=== PATIENT | female | born 1990 | race American Indian/Alaskan Native ===

== ENCOUNTER 2017-01-22 09:45 | Emergency (ER) | payer BC ==
[2017-01-22 09:47] VITALS: BMI 49.4
[2017-01-22 09:50] VITALS: PULSE 57; TEMP 98.2
--- NOTE | 2017-01-22 10:14 | ED PDOC ---
Arrival/HPI - General Historian: Patient - General Chief Complaint: Chest Pain Time Seen by Provider: 01/22/17 09:52 - History of Present Illness Narrative History of Present Illness (Text): 01/22/17 10:14 26 yo female w/Past medical history of morbid obesity, intermittent chest pain , was sent to Emergency department for evaluation of Left sided chest pain gradually developed since 3AM today. Pt sts, " yesterday went for 1st part of stress test when performed on treadmill and came back today for nuclear test". Pt sts, reported to visitor services technician today that has left sided chest pain since today AM who advised go to Emergency department for further evaluation. Pt describes chest pain as intermittent left sided " discomfort", reproducible. Otherwise, pt denies fever, chills, headache, dizziness, neck pain, shortness of breath, dyspnea, diaphoresis, palpitation, abd. pain, N/V, back pain. AT the time of evaluation, comfortable, not in any apparent distress. Pt's card- Dr.P. Iglesias. FYI: records form previous Emergency department visits review, Pt was last seen here in Emergency department on 12/29/16 due to chest pain when Troponin was negative, slightly high DDImer with normal findings on CTA chest (-) PE. (Cassie Stratton) Past Medical History - Provider Review Nursing Documentation Reviewed: Yes - Travel History Have you recently traveled outside [place] w/in the past 3 mons?: No - Infectious Disease Hx of Infectious Diseases: None - Tetanus Immunization Tetanus Immunization: Unknown - Pulmonary Hx Asthma: Yes - Hematological/Oncological Other/Comment: Lyme's Disease - Psychiatric Hx Substance Use: No - Surgical History Other/Comment: left breast cyst removal. - Anesthesia Hx Anesthesia: Yes Hx Anesthesia Reactions: No - Suicidal Assessment Feels Threatened In Home Enviroment: No - Patient History Narrative Patient History: Morbid obesity, hx of chest pain, asthma? (Cassie Stratton) Family/Social History - Physician Review Nursing Documentation Reviewed: Yes Family/Social History: No Known Family HX Smoking Status: stop x 2 w Hx Alcohol Use: No Hx Substance Use: No Substance used: thc Allergies/Home Meds Allergies/Adverse Reactions: Allergies No Known Allergies Allergy (Verified 01/22/17 09:51) Review of Systems - Review of Systems Constitutional: Normal Eyes: Normal ENT: Normal Respiratory: absent: SOB, Cough, Sputum, Wheezing Cardiovascular: Chest Pain. absent: Palpitations, Syncope Gastrointestinal: Normal Genitourinary Female: Normal Musculoskeletal: Normal Skin: Normal Neurological: Normal Endocrine: Normal Hemo/Lymphatic: Normal Psychiatric: Normal Physical Exam Temperature: Afebrile Blood Pressure: Normal Pulse: Regular Respiratory Rate: Normal Appearance: Positive for: Well-Appearing, Non-Toxic, Comfortable Pain Distress: None Mental Status: Positive for: Alert and Oriented X 3 - Systems Exam Conjunctiva: Present: Normal Ears: Present: NORMAL TM Mouth: Present: Moist Mucous Membranes Neck: Present: Trachea Midline, Other ((-) carotid bruits B/L). No: JVD, Bruit Respiratory/Chest: Present: Clear to Auscultation, Good Air Exchange. No: Respiratory Distress, Accessory Muscle Use, Wheezes, Decreased Breath Sounds Cardiovascular: Present: Regular Rate and Rhythm, Normal S1, S2, Other (mild reproducible tenderness over left anterior chest wall.). No: Murmurs Abdomen: Present: Normal Bowel Sounds. No: Tenderness, Distention, Peritoneal Signs Back: No: CVA Tenderness Upper Extremity: Present: Normal ROM. No: Edema, Deformity Lower Extremity: Present: NORMAL PULSES, Normal ROM. No: Edema, CALF TENDERNESS , Swelling, Deformity Neurological: Present: GCS=15, Speech Normal, Normal Sensory Function, Norm Deep Tendon Reflexes Skin: Present: Warm, Dry, Normal Color. No: Rashes Psychiatric: Present: Alert, Oriented x 3 Vital Signs Temp Pulse Resp BP Pulse Ox 01/22/17 09:47 98.2 F 57 L 16 132/80 100 01/22/17 09:45 98.2 F 57 L 18 132/80 100 Medical Decision Making - Lab Interpretations I have reviewed the lab results: Yes Interpretation: No clinic. lab abnormalty ED Course and Treatment: I was available for consultation during PA evaluation. The chart was reviewed by me, and I agree with disposition. The documented history was done by the physician artists' model. The documented physical exam was done by the physician artists' model. The documented procedures were done by the physician artists' model. (Johnny Farley) 01/22/17 10:20 Case discussed with , recommend "troponin and sent back to complete nuclear test". As per , " if Troponin stable, cane be discharge with outpt f/u". At 11:55, Pt resting comfortably in Emergency department, afebrile, hemodynamicaly stable. non-toxic. On cardiac monitore, pt remained in Sinus casi, no ectopy or irregular rhythm noted. PuslEOx 99% RA neck: Supple, (-) carotid bruits B/L, (-) JVD ENT: no acute findings Lungs: CTA B/L, BS equal B/L. CVS: (+)S1S2, reg, (-) murmur Abd: benign, (-) guarding, (-) rebound. NO peripheral edema. Neurlogicaly intact. Diagnostics review, Troponin negative, no other new changes note compare to previous visit. Reviewed EKG, CXR- no new acute changes noted compare to previous visit on . results review and discussed with pt, accidental findings on UA(+)trach. Pt received tx in Emergency department. Encourage to treat partner(s). Pt reports, completed stress test today prior to arrival to Emergency department. Pt ref. to F/u with in 1-2 days as per discussed with him, for further evaluation and treatment. Pt understand, stable for discharges. (Cassie Stratton) - Lab Interpretations Lab Results: 01/22/17 10:35 01/22/17 10:35 Lab Results 01/22/17 10:35: Sodium 140, Potassium 4.0, Chloride 106, Carbon Dioxide 24, Anion Gap 14, BUN 11, Creatinine 0.9, Est GFR ( Amer) > 60, Est GFR (Non- Af Amer) > 60, Random Glucose 88, Calcium 9.0, Total Bilirubin 0.5, AST 22, ALT 30, Alkaline Phosphatase 45, Lactate Dehydrogenase 304 L, Total Creatine Kinase 197, Troponin I 0.02, Total Protein 7.3, Albumin 4.0, Globulin 3.3, Albumin/ Globulin Ratio 1.2 01/22/17 10:35: Urine Color Yellow, Urine Appearance Clear, Urine pH 6.0, Ur Specific [place] <= 1.005, Urine Protein Negative, Urine Glucose (UA) Negative, Urine Ketones Negative, Urine Blood Negative, Urine Nitrate Negative, Urine Bilirubin Negative, Urine Urobilinogen 0.2, Ur Leukocyte Esterase Trace H, Urine RBC Negative, Urine WBC 2 - 5, Ur Epithelial Cells 6 - 8, Urine Other Trichomonas, Urine HCG, Qual Negative 01/22/17 10:35: PT 11.6, INR 1.07, APTT 29.3 01/22/17 10:35: WBC 4.0 L, RBC 3.93, Hgb 11.1 L, Hct 33.3 L, MCV 84.7, MCH 28.2 , MCHC 33.3, RDW 15.0 H, Plt Count 233, MPV 9.8, Gran % 27.5 L, Lymph % (Auto) 67.1 H, [place] % (Auto) 3.2, Eos % (Auto) 1.7, Baso % (Auto) 0.5, Gran # 1.11 L, Lymph # 2.7, [place] # 0.1, Eos # 0.1, Baso # 0.02 - RAD Interpretation Radiology Orders: 01/22/17 10:03 CHEST TWO VIEWS (PA/LAT) [RAD] Stat IMPRESSION: No active disease. (Cassie Stratton) - EKG Interpretation EKG Interpretation (Text): 01/22/17 10:22 SInus casi@55/min, NAD, T wave inversion in V2, no acute ST-T changes Compare to old EKg from 12/29/16, no new acute EKG findings noted. (Cassie Stratton) - Medication Orders Current Medication Orders: Discontinued Medications Aspirin (Aspirin) 325 mg PO STAT STA Stop: 01/22/17 10:05 Last Admin: 01/22/17 10:30 Dose: 325 mg Disposition/Present on Arrival - Present on Arrival Any Indicators Present on Arrival: No History of DVT/PE: No History of Uncontrolled Diabetes: No Urinary Catheter: No History of Decub. Ulcer: No History Surgical Site Infection Following: None - Disposition Have Diagnosis and Disposition been Completed?: Yes Disposition Time: 11:56 Patient Plan: Discharge - Disposition Diagnosis: Chest pain, Trichomonal infection Disposition: HOME/ ROUTINE Condition: STABLE Discharge Instructions (ExitCare): Chest Pain (ED), Trichomoniasis (ED) Additional Instructions: ENCOURAGE PARTNER TO GET TESTED AND TREATED FOLLOW UP WITH IN 1-2 DAYS FOR RE-EVALUATION. RETURN TO Emergency department IF ANY WORSENING OR NEW CHANGES. Referrals: Rasheed Berumen [Primary Care Provider] - Follow up with primary Forms: [employer] ([place])
[2017-01-22 10:39] LABS: BASO # 0.02 K/mm3 (0.0-2.0); BASO % 0.5 % (0.0-3.0); EOS # 0.1 (0.0-0.7); EOS % 1.7 % (1.5-5.0); GRAN # 1.11 (1.4-6.5); GRAN % 27.5 % (50.0-68.0); HEMATOCRIT 33.3 % (36.0-48.0); LYMPH # 2.7 (1.2-3.4); LYMPH % 67.1 % (22.0-35.0); MEAN CELL VOLUME 84.7 fl (80.0-105.0); MEAN CORPUSCULAR HEMOGLOBIN 28.2 pg (25.0-35.0); MEAN CORPUSCULAR HGB CONC 33.3 g/dl (31.0-37.0); MEAN PLATELET VOLUME 9.8 fl (7.0-11.0); MONO # 0.1 (0.1-0.6); MONO % 3.2 % (1.0-6.0)
[2017-01-22 10:40] LABS: URINE BILIRUBIN NEGATIVE (NEGATIVE); URINE BLOOD NEGATIVE (NEGATIVE); URINE GLUCOSE (UA) NEGATIVE (NEGATIVE); URINE KETONE NEGATIVE (NEGATIVE); URINE LEUKOCYTE ESTERASE TRACE Leu/uL (NEGATIVE); URINE PROTEIN NEGATIVE mg/dL (<30 mg/dL); URINE UROBILINOGEN 0.2 E.U./dL (<1 E.U./dL)
[2017-01-22 10:42] LABS: URINE APPEARANCE CLEAR (CLEAR); URINE COLOR YELLOW (YELLOW)
[2017-01-22 10:44] LABS: URINE RBC NEGATIVE /hpf (0-2)
[2017-01-22 10:49] LABS: INR 1.07 (0.93-1.08); PARTIAL THROMBOPLASTIN TIME 29.3 Seconds (23.7-30.8)
[2017-01-22 10:53] LABS: ALB/GLOB RATIO 1.2 (1.1-1.8); ALKALINE PHOSPHATASE 45 U/L (38-126); ALT/SGPT 30 U/L (7-56); AST/SGOT 22 U/L (14-36); BILIRUBIN,TOTAL 0.5 mg/dL (0.2-1.3); BLOOD UREA NITROGEN 11 mg/dL (7-21); CARBON DIOXIDE 24 mmol/L (21-33); CHLORIDE 106 mmol/L (98-107); GFR AFRICAN-AMERICAN > 60; GLUCOSE,RANDOM 88 mg/dL (70-110); SODIUM 140 mmol/L (132-148); TOTAL PROTEIN 7.3 g/dL (5.8-8.3)
[2017-01-22 11:04] LABS: TROPONIN I 0.02 ng/mL
--- NOTE | 2017-01-22 11:16 | RAD ---
HISTORY: CP COMPARISON: No prior. TECHNIQUE: Chest PA and lateral FINDINGS: LUNGS: No active pulmonary disease. PLEURA: No significant pleural effusion identified. No pneumothorax apparent. CARDIOVASCULAR: Normal. OSSEOUS STRUCTURES: No significant abnormalities. VISUALIZED UPPER ABDOMEN: Normal. OTHER FINDINGS: None. IMPRESSION: No active disease.
[2017-01-22 12:15] VITALS: BP 126/83; RESP 18; O2SAT 98
--- NOTE | 2017-01-22 22:42 | CARD ---
APPROVED REPORT EKG Measurement Heart [id number] <Conclusion> Sinus bradycardia with sinus arrhythmia Otherwise normal ECG
== END 2017-01-22 12:27 | disposition home or self-care (01) ==
LOC: ED 09:45
DX: R07.9 Chest pain, unspecified (principal); A59.9 Trichomoniasis, unspecified; E66.01 Morbid (severe) obesity due to excess calories; Z68.42 Body mass index [BMI] 45.0-49.9, adult